=== PATIENT | female | born 1980 | race African-American/Black ===

== ENCOUNTER 2023-07-09 02:23 | Emergency (ER) | payer BC ==
[2023-07-09 02:32] VITALS: BP 128/82; PULSE 83; RESP 16; TEMP 98.6; BMI 38.0
== END 2023-07-09 03:02 | disposition home or self-care (01) ==
LOC: FER 02:23
DX: K62.9 Disease of anus and rectum, unspecified (principal); K64.4 Residual hemorrhoidal skin tags
CPT/HCPCS: 99282-25